=== PATIENT | male | born 1995 | race African-American/Black ===

== ENCOUNTER 2017-11-18 10:16 | Emergency (ER) | payer SELFPAY ==
[~2017-11-18] VITALS: Ht 170.2 cm; Wt 75.0 kg
[2017-11-18 10:20] VITALS: PULSE 70; RESP 16; TEMP 99; O2SAT 100
--- NOTE | 2017-11-18 10:50 | PD ---
HPI Chief Complaint: ENT Complaint Time Seen by Provider: 10:43 Travel History International Travel<30 days: No Contact w/Intl Traveler<30days: No Traveled to known affect area: No History of Present Illness HPI 22-year-old male presents to emergency department with complaint of sinus pressure and sore throat since yesterday. Denies fever, vomiting. Denies cough , ear pain, chest tightness, shortness of breath, wheezing. Reports nasal congestion. Denies lump in throat, difficulty swallowing, unusual drooling. Reports painful swallowing. Also aggravated with talking. Rates pain 9/10. Describes as razor blades in his throat. Has tried TheraFlu and ibuprofen for symptom management with minimal relief. No one else with similar symptoms. No primary care provider. No known allergies. History of asthma. Has no other medical complaints. No other modifying factors or associated signs and symptoms. PFSH Social History Tobacco Use: No Allergies-Medications (Allergen,Severity, Reaction): Coded Allergies: No Known Allergies (Unverified , 11/18/17) Reported Meds & Prescriptions Reported Meds & Active Scripts Active No Active Prescriptions or Reported Medications Review of Systems Except as stated in HPI: all other systems reviewed are Neg Physical Exam Narrative GENERAL: Well-nourished, well-developed black male patient, in no acute distress ; afebrile, nontoxic-appearing SKIN: Warm and dry. No rash. HEAD: Atraumatic. Normocephalic. EYES: Pupils equal and round. No scleral icterus. No injection or drainage. ENT: Mucosa pink and moist. Oropharynx with erythema; without edema or exudates. No uvular edema. No uvular, palatal, or tonsillar deviation. Airway patent. EARS: Bilateral pinnae and external canals appear within normal limits. Bilateral tympanic membranes without erythema, dullness or perforation. NECK: Trachea midline. Anterior cervical lymphadenopathy and with tenderness on palpation. CARDIOVASCULAR: Regular rate RESPIRATORY: No accessory muscle use. GASTROINTESTINAL: Abdomen soft, non-tender, nondistended. Hepatic and splenic margins not palpable. Bowel sounds are active 4 quadrants. MUSCULOSKELETAL: No obvious deformities. No clubbing. No cyanosis. No edema. NEUROLOGICAL: Awake and alert. Oriented 3. No obvious cranial nerve deficits. Motor grossly within normal limits. Normal speech. Moves all extremities. 5/5 strength to all extremities. PSYCHIATRIC: Appropriate mood and affect; insight and judgment normal. Data Data Last Documented VS Vital Signs Date Time Temp Pulse Resp B/P (MAP) Pulse Ox O2 Delivery O2 Flow Rate FiO2 11/18/17 11:00 149/69 (95) 11/18/17 10:20 99.0 70 16 100 Orders Orders Group A Rapid Strep Screen (11/18/17 10:47) Ibuprofen (Motrin) (11/18/17 11:00) Strep Culture (Group A) (11/18/17 11:05) MDM Medical Decision Making Medical Screen Exam Complete: Yes Emergency Medical Condition: Yes Medical Record Reviewed: Yes Differential Diagnosis Viral pharyngitis, strep pharyngitis, tonsillitis, sore throat, less likely peritonsillar abscess Narrative Course 22-year-old male with sinus pressure and sore throat. Afebrile nontoxic pain. Denies fever, vomiting. Rapid strep and ibuprofen ordered. 1237: Rapid strep negative. Discussed viral illness and symptom management. Magic mouthwash and ibuprofen prescribed for home. Instructed patient to follow up with primary care provider. Patient verbalizes understanding and agreement with treatment plan. Patient is medically cleared and stable for discharge. Discussed reasons to return to the emergency department. Patient agrees with treatment plan. The patients vital signs are stable and the patient is stable for outpatient follow-up and treatment. Patient discharged home, stable and in no acute distress. Diagnosis Primary Impression: Viral illness Referrals: [facility] Primary Care Physician Patient Instructions: Cold Symptoms (ED), General Instructions, Pharyngitis (ED ), Safe Use of Cough and Cold Medicines (ED) Departure Forms: Tests/Procedures, Work Release Enter return to work date: Nov 19, 2017 Additional Instructions: [id number] cold medications as directed and as needed for symptom management Get plenty of sleep/rest Rest your voice Drink plenty of fluids to prevent dehydration Use warm saltwater gargles to soothe throat pain Use an air humidifier/turn off ceiling fans Use throat lozenges as needed for sore throat Ibuprofen or Tylenol as directed and as needed for pain Follow-up with your primary care provider within 2-4 days Return immediately to the emergency department with worsening of symptoms Med/Other Pt SpecificInfo: Prescription(s) given Scripts Ibuprofen (Ibuprofen) 800 Mg Tab 800 MG PO Q8H Y for PAIN SCALE 1 TO 10, #20 TAB 0 Refills Prov: Linda Kaye 11/18/17 [id number]-Dxq-Alum-Simeth Liq (Magic Mouthwash Pediatric/Adult Liq) 60 Ml Susp 5 ML SWISH-SWAL Q3HR Y for SORE THROAT, #60 ML 0 Refills Each 5mL contains: Diphenydramine 4.5mg, Viscous Lidocaine 2% 10mg, Maalox Advanced Regular Strength 2.7ml Prov: Linda Kaye 11/18/17 Disposition: 01 DISCHARGE HOME Condition: Stable Linda Kaye Nov 18, 2017 10:50
[2017-11-18 11:00] VITALS: BP 149/69
[2017-11-18] MEDS ORDERED: IBUPROFEN 800 MG TAB PO ONE (11:00)
[2017-11-18] MEDS ORDERED: IBUP1TAB7 PO (12:38)
[2017-11-18] MEDS ORDERED: MAGICPED SWISH-SWAL (12:38)
== END 2017-11-18 12:50 | disposition home or self-care (01) ==
LOC: NEPK 10:16
DX: B34.9 Viral infection, unspecified (principal); J45.909 Unspecified asthma, uncomplicated
CPT/HCPCS: 87081; 87880; 99283